=== PATIENT | male | born 1955 | race Caucasian/White ===

== ENCOUNTER 2016-09-13 11:56 | Inpatient (IN) | payer OTHER ==
--- NOTE | 2016-09-13 12:17 | CPEKG ---
Heart Rate: 125 RR Interval: 480 P-R Interval: 164 QRSD Interval: 100 QT Interval: 296 QTC Interval: 427 P Lincoln: 34 QRS Lincoln: 111 T Wave Lincoln: -4 EKG Severity - ABNORMAL ECG - EKG Impression: SINUS TACHYCARDIA EKG Impression: RIGHT VENTRICULAR HYPERTROPHY EKG Impression: BORDERLINE T ABNORMALITIES, INFERIOR LEADS Electronically Signed By: Glen Downs 13-Sep-2016 16:08:41
[2016-09-13 12:34] LABS: % IMMATURE GRANULYOCYTES 0.4 % (0.0-1.1); ABSOLUTE IMMATURE GRANULOCYTES 0.04 10^3/uL (0.00-0.10); ADD DIFF? NO; ADD MORPH? NO; ADD SCAN? NO; ATYPICAL LYMPHOCYTE FLAG 0 (0-99); FRAGMENT RBC FLAG 0 (0-99); HEMATOCRIT 35.8 % (40.0-51.0); HEMOGLOBIN 11.8 g/dL (13.7-17.5); LEFT SHIFT FLG 70 (0-99); LIPEMIA HEMOLYSIS FLAG 80 (0-99); MEAN CELL HEMOGLOBIN 29.9 pg (27.9-34.1); MEAN CELL VOLUME 90.9 fL (81.5-99.8); PLATELET CLUMPS FLAG 30 (0-99); PLATELET COUNT 166 10^3/uL (150-400); RED BLOOD CELL COUNT 3.94 10^6/uL (4.40-6.38); RED CELL DISTRIBUTION WIDTH 13.3 % (11.5-15.2)
--- NOTE | 2016-09-13 12:37 | EDPHY ---
H & P Time Seen by Provider: 09/13/16 12:24 HPI/ROS: Chief complaint. Heart transplant, fever HPI. Patient is a 61-year-old male with a heart transplant 9 years ago. 4 days ago apparently the patient had decreased RBC count and his Prograf level was low. 3 days ago he developed fever and lethargy which is continued. Fever this morning to 104 degrees. Sinus surgery May 2016. Patient denies upper respiratory symptoms, sore throat, cough. Slight shortness of breath. He notes increased heart rate. Denies abdominal pain, rash, urinary symptoms. ROS Constitutional. Fever and chills as well as weakness Eyes. no problems with vision ENT. no sore throat, no nasal drainage Cardiovascular. No chest discomfort but awareness of rapid heart rate Respiratory. Some shortness of breath Abdominal. no abdominal pain, no nausea/vomiting, no diarrhea . no problems urinating MS. no calf pain/swelling, no neck/back pain, no joint pain Skin. no rash Lymph. no swollen glands Neuro. no headache, no dizziness, no difficulty walking or with speech Past Medical/Surgical History: Heart transplant on chronic immunosuppression, hypertension, gout, dyslipidemia Social History: Single, nonsmoker, no alcohol Smoking Status: Never smoked Physical Exam: General Appearance: Alert well-developed male moderate distress vital signs show temp 37.4degrees, heart rate 149 Eyes: Pupils equal and round no pallor or injection. ENT, mucous membranes are moist. Pharynx without injection Respiratory: No retractions. Lungs are essentially clear. Maybe slight decreased breath sounds on the left Cardiovascular: Regular rate and rhythm with tachycardia Gastrointestinal: Abdomen is soft and nontender, no masses, bowel sounds normal. Neurological: Awake and alert, sensory and motor exams grossly normal. Skin: Warm and dry, no rashes. Musculoskeletal: Neck is supple nontender. Extremities symmetrical, full range of motion. Psychiatric: Patient is oriented X 3, there is no agitation. Constitutional: Initial Vital Signs Temperature (C) 37.4 C 09/13/16 12:02 Heart Rate 149 H 09/13/16 12:02 Respiratory Rate 22 H 09/13/16 12:02 Blood Pressure 142/100 H 09/13/16 12:02 O2 Sat (%) 96 09/13/16 12:02 O2 Delivery Mode Room Air Allergies/Adverse Reactions: spironolactone Allergy (Severe, Verified 09/13/16 14:04) Other-Enter Comments Home Medications: Medication Instructions Recorded Allopurinol 100 MG (*) 100 mg PO DAILY 09/13/16 Aspirin [Aspirin 81mg (*)] 81 mg PO DAILY 09/13/16 Azelastine [Astelin Nasal [place] 1 sprays EACHNARE BID PRN 09/13/16 (RX)] Calcium [HI-BRENNAN] 1,000 mg PO BID 09/13/16 Cholecalciferol Vit D3 [Vitamin D3 2,000 units PO DAILY 09/13/16 (*)] Cyanocobalamin [Vitamin B12 (*)] 200 mcg PO DAILY 09/13/16 Lisinopril [Zestril 20 mg (*)] 20 mg PO DAILY 09/13/16 Mycophenolate Sodium [Mycophenolic 180 mg PO BID 09/13/16 Acid] Pravastatin Sodium 40 mg PO HS 09/13/16 Tacrolimus Anhydrous [Prograf 0.5 0.5 mg PO BID 09/13/16 MG (*)] Tadalafil [Cialis] 5 mg PO PRN PRN 09/13/16 traZODone [traZODONE 100MG (*)] 100 mg PO HS 09/13/16 Medical Decision Making - Diagnostics EKG Interpretation: EKG interpreted by me shows sinus tachycardia normal interval and axis. QRS is normal there is no significant ST elevation or depression. No arrhythmia. The rate is 125 Imaging Results: Imaging Impressions Chest X-Ray 09/13/16 12:26 Impression: 1. Postoperative changes related open heart surgery with heart transplant. 2. No active cardiopulmonary disease seen. One-view chest x-ray interpreted by me is nonacute Procedures: IV normal saline, monitor. 1 L saline given sepsis workup including lactate and blood cultures ED Course/Re-evaluation: Echocardiogram is ordered and performed in the emergency department which looks fairly normal other than rate On serial evaluations patient remains stable. He and I discussed laboratory evaluation, treatment plan including admission. He expresses understanding and agreement I have consulted and discussed with Dr. Mota, cardiology who sees the patient in the emergency department I consulted and discussed the case with Dr. Ivory, hospitalist, who also sees the patient in the emergency department Differential Diagnosis: I suspect that this is a a rejection syndrome as the patient is on chronic immunosuppression and is Prograf level was low 4 days ago. At this point I do not find any evidence for pneumonia or urinary tract infection. The patient does not have sepsis as he has normal lactate and normal blood pressure and again no source of infection at this point - Data Points Laboratory Results: Laboratory Results 09/13/16 12:15 09/13/16 12:15 09/13/16 09/13/16 09/13/16 12:15 12:15 12:15 WBC 10.18 10^3/uL H 10^3/uL (3.80-9.50) RBC 3.94 10^6/uL L 10^6/uL (4.40-6.38) Hgb 11.8 g/dL L g/dL (13.7-17.5) Hct 35.8 % L % (40.0-51.0) MCV 90.9 fL fL (81.5-99.8) MCH 29.9 pg pg (27.9-34.1) MCHC 33.0 g/dL g/dL (32.4-36.7) RDW 13.3 % % (11.5-15.2) Plt Count 166 10^3/uL 10^3/uL (150-400) MPV 10.0 fL fL (8.7-11.7) Neut % (Auto) 93.2 % H % (39.3-74.2) Lymph % (Auto) 2.0 % L % (15.0-45.0) [place] % (Auto) 4.2 % L % (4.5-13.0) Eos % (Auto) 0.1 % L % (0.6-7.6) Baso % (Auto) 0.1 % L % (0.3-1.7) Nucleat RBC Rel Count 0.0 % % (0.0-0.2) Absolute Neuts (auto) 9.49 10^3/uL H 10^3/uL (1.70-6.50) Absolute Lymphs (auto) 0.20 10^3/uL L 10^3/uL (1.00-3.00) Absolute Monos (auto) 0.43 10^3/uL 10^3/uL (0.30-0.80) Absolute Eos (auto) 0.01 10^3/uL L 10^3/uL (0.03-0.40) Absolute Basos (auto) 0.01 10^3/uL L 10^3/uL (0.02-0.10) Absolute Nucleated RBC 0.00 10^3/uL 10^3/uL (0-0.01) Immature Gran % 0.4 % % (0.0-1.1) Immature Gran # 0.04 10^3/uL 10^3/uL (0.00-0.10) PT 14.8 SEC SEC (12.0-15.0) INR 1.16 (0.83-1.16) APTT 28.6 SEC SEC (23.0-38.0) VBG Lactic Acid Sodium 138 mEq/L mEq/L (134-144) Potassium 4.0 mEq/L mEq/L (3.5-5.2) Chloride 102 mEq/L mEq/L (97-110) Carbon Dioxide 21 mEq/l L mEq/l (22-31) Anion Gap 15 mEq/L mEq/L (8-16) BUN 24 mg/dL H mg/dL (7-23) Creatinine 1.4 mg/dL H mg/dL (0.7-1.3) Estimated GFR 52 Glucose 111 mg/dL H mg/dL (70-100) Calcium 9.4 mg/dL mg/dL (8.5-10.4) Total Bilirubin 0.7 mg/dL mg/dL (0.1-1.4) Troponin I < 0.012 ng/mL ng/mL (0-0.034) NT-Pro-B Natriuret Pep 967 pg/mL H pg/mL (0-125) 09/13/16 12:15 WBC RBC Hgb Hct MCV MCH MCHC RDW Plt Count MPV Neut % (Auto) Lymph % (Auto) [place] % (Auto) Eos % (Auto) Baso % (Auto) Nucleat RBC Rel Count Absolute Neuts (auto) Absolute Lymphs (auto) Absolute Monos (auto) Absolute Eos (auto) Absolute Basos (auto) Absolute Nucleated RBC Immature Gran % Immature Gran # PT INR APTT VBG Lactic Acid 1.9 mmol/L mmol/L (0.7-2.1) Sodium Potassium Chloride Carbon Dioxide Anion Gap BUN Creatinine Estimated GFR Glucose Calcium Total Bilirubin Troponin I NT-Pro-B Natriuret Pep Medications Given: Discontinued Medications Sodium Chloride (Ns) 1,000 mls @ 0 mls/hr IV EDNOW ONE; Wide Open PRN Reason: Protocol Stop: 09/13/16 12:53 Last Admin: 09/13/16 13:03 Dose: 1,000 mls Departure - Departure Disposition: [facility] Inpatient Acute Clinical Impression: Heart transplant complication Fever Qualifiers: Fever type: unspecified Qualified Code(s): R50.9 - Fever, unspecified Condition: Fair
[2016-09-13 12:45] LABS: ANION GAP 15 mEq/L (8-16); APTT 28.6 SEC (23.0-38.0); BILIRUBIN,TOTAL 0.7 mg/dL (0.1-1.4); CALCIUM 9.4 mg/dL (8.5-10.4); CARBON DIOXIDE 21 mEq/l (22-31); CHLORIDE 102 mEq/L (97-110); CREATININE 1.4 mg/dL (0.7-1.3); GLOMERULAR FILTRATION RATE 52; GLUCOSE 111 mg/dL (70-100); INR 1.16 (0.83-1.16); PROTIME(PATIENT) 14.8 SEC (12.0-15.0); SODIUM 138 mEq/L (134-144)
[2016-09-13] MEDS ORDERED: NS 1,000 ML IV ONE (12:52)
[2016-09-13 12:56] LABS: TROPONIN I < 0.012 ng/mL (0-0.034)
[2016-09-13] MEDS ORDERED: ACETAMINOPHEN 325 MG TAB PO PRN (14:37)
[2016-09-13] MEDS ORDERED: ONDANSETRON DISINTEGRATING 4 MG TAB PO PRN (14:37)
[2016-09-13] MEDS ORDERED: ONDANSETRON 4 MG/2 ML VIAL IVP PRN (14:37)
[2016-09-13] MEDS ORDERED: AZELASTINE NASAL MDI EACHNARE PRN (14:40)
[2016-09-13] MEDS ORDERED: NS 1,000 ML IV SCH (14:45)
--- NOTE | 2016-09-13 14:50 | PDGENHP ---
History and Physical - Chief Complaint Acute fever - History of Present Illness primary care provider: Dr. Dakota Khan primary quality assurance inspector: Dr. Americo Bravo/Seamus Mota primary transplant provider: Dr. Fern Medrano History of present illness: 61-year-old male presents with acute fever characterized as a temperature of 104 degrees F with onset of symptoms day prior to this presentation and duration intermittent thereafter. Patient reports associated fatigue with onset of symptoms approximately 3 days ago and progressive worsening thereafter. He denies any cough, shortness of breath, chest pain, dysuria, diarrhea, neck stiffness. He does endorse a headache which developed overnight, located globally around his head, as well as a noticeable fast heart rate. Prior to his onset of symptoms, the patient had otherwise been feeling well. The patient has been taking all of his anti-rejection medications without any recent changes. He himself has not had any recent travel but he did have healthy visitors from [place] staying in his home for approximately 1 week, departing several days prior to this presentation. He does also note that he had septal deviation surgery in May 2016, and has experienced some intermittent drainage and sinus congestion since that time. History Information - Allergies/Home Medication List Allergies/Adverse Reactions: spironolactone Allergy (Severe, Verified 09/13/16 14:04) Other-Enter Comments Home Medications: Allopurinol 100 MG (*) 100 mg PO DAILY 09/13/16 [Last Taken 09/13/16] Aspirin [Aspirin 81mg (*)] 81 mg PO DAILY 09/13/16 [Last Taken 09/13/16] Azelastine [Astelin Nasal [place] (RX)] 1 sprays EACHNARE BID PRN 09/13/16 [Last Taken Unknown] Calcium [HI-BRENNAN] 1,000 mg PO BID 09/13/16 [Last Taken 09/13/16] Cholecalciferol Vit D3 [Vitamin D3 (*)] 2,000 units PO DAILY 09/13/16 [Last Taken 09/13/16] Cyanocobalamin [Vitamin B12 (*)] 200 mcg PO DAILY 09/13/16 [Last Taken 09/13/16] Lisinopril [Zestril 20 mg (*)] 20 mg PO DAILY 09/13/16 [Last Taken 09/12/16] Mycophenolate Sodium [Mycophenolic Acid] 180 mg PO BID 09/13/16 [Last Taken ] Pravastatin Sodium 40 mg PO HS 09/13/16 [Last Taken 09/12/16] Tacrolimus Anhydrous [Prograf 0.5 MG (*)] 0.5 mg PO BID 09/13/16 [Last Taken ] Tadalafil [Cialis] 5 mg PO PRN PRN 09/13/16 [Last Taken 09/06/16] traZODone [traZODONE 100MG (*)] 100 mg PO HS 09/13/16 [Last Taken 09/12/16] I have personally reviewed and updated: family history, medical history, social history, surgical history - Past Medical History Additional medical history: Nonischemic cardiomyopathy with a heart transplant in 2007, 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 Reported deep venous thrombosis in the setting of transplant surgery. 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 chronic kidney disease stage 3 with baseline creatinine 1.3. No evidence of coronary artery disease with normal angiography November of 2014. chronic hypertension. chronic foot pain. hyperlipidemia. osteopenia. actinic keratosis. deviated septum - Surgical History Additional surgical history: deviated septum May 2016. heart transplant 2007. fasciotomy 2007 - Family History Additional family history: no family history of renal failure, heart failure, no recent sick family contacts - Social History Smoking Status: Never smoked Alcohol Use: Rarely Drug Use: None Additional social history: normally independent in his ADLs comma physically active, does not experience any anginal symptoms Review of Systems ROS: 10pt was reviewed & negative except for what was stated in HPI & below Constitutional: Reports: fever, malaise, weakness Cardiac: Reports: other ( tachycardia) Physical Exam Temp Pulse Resp BP Pulse Ox 37.7 C 118 H 20 123/76 H 98 09/13/16 13:02 09/13/16 14:21 09/13/16 14:21 09/13/16 14:21 09/13/16 14:21 Constitutional: no apparent distress, appears nourished, not in pain Eyes: PERRL, anicteric sclera, EOMI Ears, Nose, Mouth, Throat: moist mucous membranes, hearing normal, no oral mucosal ulcers, other ( some mucus in the bilateral nares without any significant erythema or ulceration) Cardiovascular: tachycardia, No systolic murmur, No irregularly irregular, No edema Respiratory: reduced air movement ( left lower and mid posterior segments), inspiratory crackles ( left base), No expiratory wheeze, No bronchial breath sounds, No respiratory distress Gastrointestinal: normoactive bowel sounds, soft, non-tender abdomen, other ( nontender central abdominal hernia), No guarding Skin: other ( well-healed scars on the chest, no evidence of vesicular lesions) Musculoskeletal: full muscle strength, no muscle tenderness, other ( full range of motion of the neck without any meningeal signs) Neurologic: AAOx3, sensation intact bilaterally, No weakness Psychiatric: interacting appropriately, not anxious, not encephalopathic, thought process linear Lymph, Heme, Immunologic: other ( palpable 1 cm bilateral submandibular lymph nodes, mildly tender on the right side, no further anterior posterior cervical lymphadenopathy) Lab Data & Imaging Review 09/13/16 12:15 09/13/16 12:15 WBC 10.18 10^3/uL (3.80-9.50) H 09/13/16 12:15 RBC 3.94 10^6/uL (4.40-6.38) L 09/13/16 12:15 Hgb 11.8 g/dL (13.7-17.5) L 09/13/16 12:15 Hct 35.8 % (40.0-51.0) L 09/13/16 12:15 MCV 90.9 fL (81.5-99.8) 09/13/16 12:15 MCH 29.9 pg (27.9-34.1) 09/13/16 12:15 MCHC 33.0 g/dL (32.4-36.7) 09/13/16 12:15 RDW 13.3 % (11.5-15.2) 09/13/16 12:15 Plt Count 166 10^3/uL (150-400) 09/13/16 12:15 MPV 10.0 fL (8.7-11.7) 09/13/16 12:15 Neut % (Auto) 93.2 % (39.3-74.2) H 09/13/16 12:15 Lymph % (Auto) 2.0 % (15.0-45.0) L 09/13/16 12:15 [place] % (Auto) 4.2 % (4.5-13.0) L 09/13/16 12:15 Eos % (Auto) 0.1 % (0.6-7.6) L 09/13/16 12:15 Baso % (Auto) 0.1 % (0.3-1.7) L 09/13/16 12:15 Nucleat RBC Rel Count 0.0 % (0.0-0.2) 09/13/16 12:15 Absolute Neuts (auto) 9.49 10^3/uL (1.70-6.50) H 09/13/16 12:15 Absolute Lymphs (auto) 0.20 10^3/uL (1.00-3.00) L 09/13/16 12:15 Absolute Monos (auto) 0.43 10^3/uL (0.30-0.80) 09/13/16 12:15 Absolute Eos (auto) 0.01 10^3/uL (0.03-0.40) L 09/13/16 12:15 Absolute Basos (auto) 0.01 10^3/uL (0.02-0.10) L 09/13/16 12:15 Absolute Nucleated RBC 0.00 10^3/uL (0-0.01) 09/13/16 12:15 Immature Gran % 0.4 % (0.0-1.1) 09/13/16 12:15 Immature Gran # 0.04 10^3/uL (0.00-0.10) 09/13/16 12:15 PT 14.8 SEC (12.0-15.0) 09/13/16 12:15 INR 1.16 (0.83-1.16) 09/13/16 12:15 APTT 28.6 SEC (23.0-38.0) 09/13/16 12:15 VBG Lactic Acid 1.9 mmol/L (0.7-2.1) 09/13/16 12:15 Sodium 138 mEq/L (134-144) 09/13/16 12:15 Potassium 4.0 mEq/L (3.5-5.2) 09/13/16 12:15 Chloride 102 mEq/L (97-110) 09/13/16 12:15 Carbon Dioxide 21 mEq/l (22-31) L 09/13/16 12:15 Anion Gap 15 mEq/L (8-16) 09/13/16 12:15 BUN 24 mg/dL (7-23) H 09/13/16 12:15 Creatinine 1.4 mg/dL (0.7-1.3) H 09/13/16 12:15 Estimated GFR 52 09/13/16 12:15 Glucose 111 mg/dL (70-100) H 09/13/16 12:15 Calcium 9.4 mg/dL (8.5-10.4) 09/13/16 12:15 Total Bilirubin 0.7 mg/dL (0.1-1.4) 09/13/16 12:15 Troponin I < 0.012 ng/mL (0-0.034) 09/13/16 12:15 NT-Pro-B Natriuret Pep 967 pg/mL (0-125) H 09/13/16 12:15 Visualized and Interpreted Chest x-ray results: Yes Chest X-Ray results: no infiltrate Visualized and Interpreted EKG results: Yes EKG Interpretation: Positive for: other ( sinus tachycardia with T-wave inversion in lead 3) Assessment & Plan Assessment: 61-year-old male presents with systemic inflammatory response syndrome in the setting of chronic immunosuppression for heart transplant Plan: 1. Systemic inflammatory response syndrome. Acute, new problem this provider, further workup indicated. Evidenced by tachycardia, fever, unclear source of infection. Patient is high risk for both focal and systemic infections, as well as atypical organisms, given his chronic immunosuppressed state. -it should be noted that his resting heart rate is 100 to 110 secondary to vagal nerve ligation for heart transplant, presented with a heart rate around 140, has reduced to 120 with IV fluids -discussed with Dr. Seamus Mota, he recommends ongoing use of IV fluids and we will provide 100 cc/hour normal saline -evaluate for source of infection with blood cultures, respiratory viral panel, urinalysis, chest CT to further workup poor air movement on the left -send procalcitonin level to gauge whether this could be bacterial versus viral -discussed with Dr. Glen Diggs, appreciate Infectious Disease consultation -hold on antibiotics until seen by Dr. Diggs -although rejection was considered, Dr. Mota has fully evaluated the patient and he does not believe that the present condition is consistent with rejection 2. Acute kidney injury on chronic kidney disease. Secondary to hypovolemia in the setting of infection, creatinine is elevated from his baseline, which is 1.3 , will provide IV fluids, reassess creatinine level and monitor urine output 3. Chronic immunosuppression secondary to heart transplant and anti rejection medications. reviewed outside records including 08/28/2015 clinic appointment assessment and plan by Dr. Medrano, outlines patient's cardiac hx as well as post-transplant care -Echo w/ preserved EF, 50%, no pericardial effusion -Continue patient's anti-rejection medications -level sent by Dr. Mota 4. HTN. Holding ACEi Diet. Cardiac Prophylaxis. High risk patient given past DVT, heparin subcu Code. Full per patient, is MPOA Disposition. Anticipated discharge uncertain this time, anticipated length stay is greater than 48 hours warranting inpatient admission status for reasonable medical necessity including suspected infection with systemic inflammatory response syndrome in the setting of chronic immunosuppression and previous heart transplant.
[2016-09-13 14:57] LABS: BILIRUBIN,TOTAL 0.7 mg/dL (0.1-1.4); BILIRUBIN-CONJUGATED 0.4 mg/dL (0.0-0.5); BILIRUBIN-UNCONJUGATED 0.3 mg/dL (0.0-1.1); TOTAL PROTEIN 6.2 g/dL (6.3-8.2)
[2016-09-13 15:00] LABS: COLOR YELLOW; LEUKOCYTE ESTERASE,URINE NEGATIVE (NEGATIVE); NITRITE,URINE NEGATIVE (NEGATIVE)
--- NOTE | 2016-09-13 15:03 | SOAPPROG ---
SOAP Progress Note Assessment/Plan: Assessment: Cardiology consultation performed and dictated. 61 y/o man initially with CHF EF 5% then got VAD then successful OHT at [facility] in 11/23. He was CMV (+) and donor CMV (+). Initially in first year after heart transplant some problems with acute grade 3b cellular and concurrent vascular rejection. Those subsided and has had any heart issues in last seven years. Last cardiac cath 11/30 showed normal coronaries with RHC: RA 1, PA 25/8 and CI 2.4 l/min. Last RV bx > three years ago and fine. He was in his normal state of good health able to do ett for 40 minutes until three days ago malaise, fevers to 104.0 and weak. Denies cough, purulent sputum production or CP. Has mild shortness of breath. Echo at bedside in er shows LVEF 58% with mild MR and no pericardial effusion. IMP: 1)normal OHT from 2007 with no signs of acute rejection or angina or CHF. 2)Fevers..question viral syndrome but could have LLL pneumonia. REC: 1)admit to tele 2)IVF NS x 1-2 liters 3)continue current home meds without changes. No need for stress dose steroids as has been off Prednisone for many years. 4)blood cultures and viral swabs. ID consult 5)check Prograf level. Goal trough level 4-5 per [facility] clinic notes. Thanks. Will follow with you. Very nice man. 09/13/16 14:57 Objective: Vital Signs Temp Pulse Resp BP Pulse Ox 37.7 C 118 H 20 123/76 H 98 09/13/16 13:02 09/13/16 14:21 09/13/16 14:21 09/13/16 14:21 09/13/16 14:21 PT 14.8 SEC (12.0-15.0) 09/13/16 12:15 INR 1.16 (0.83-1.16) 09/13/16 12:15 ICD10 Worksheet Patient Problems: Problems Problem Status Onset Fever Acute Heart transplant recipient Acute Heart transplant recipient Acute - ICD10 Problem Qualifiers (1) Fever Qualifiers: Fever type: F Encounter type: E (2) Heart transplant recipient (3) Heart transplant recipient
[2016-09-13 15:19] LABS: PROCALCITONIN 0.86 ng/mL (0.02-0.10)
--- NOTE | 2016-09-13 15:31 | ECHO ---
[id number] + + [address] : : [place] [address] : : [phone] + Adult Echocardiographic Report + --------+ :Name: WILFRID TITUS DStudy Date: 09/13/2016 02:24 PM : : Hospital Admission Number: [id number] Locati on: ER13: :: 1955 Gender: Male Height: 69 in : :Age: 61 yrs Race: WH Weight: 134 lb : :Reason For Study: Eval LV Fx : : BSA: 1.7 meter s2 : :History: Heart Transplant 2007, Now fever, SOB, Tachycardia : + --------+ MMode/2D Measurements \T\ Calculations IVSd: 0.80 cm LVIDd: 4.3 cm FS: 33.9 % Ao root diam: 3.3 cm LVPWd: 0.87 cm LVIDs: 2.9 cm EDV(Teich): 84.4 ml ACS: 2.6 cm ESV(Teich): 31.1 ml EF(Teich): 63.1 % Normal Measurement Values: + + :LVIDd (3.5-5.7cm) IVSd (0.6-1.1cm) LVPWd (0.6-1.1cm) Aortic Root (2.0-3.7cm)Left Atrium (1.5-4.0cm): :LV Vol(d) (76-115ml) LV Vol(s) (29-48ml) Ejec Fraction (50-65%)PV Robert (0.6- 1.2m/s) TV Robert (0.4-1.0m/s) : :MV E Robert (0.8-1.0m/s)MV A Robert (0.3-1.0m/s)LVOT Robert (0.7-1.2m/s) Asc Ao Robert ( 0.9-1.8m/s) : + + Doppler Measurements \T\ Calculations MV E max robert: 126.0 cm/sec PA V2 max: 105.0 cm/sec TR max robert: 248.0 cm/sec PA max P.4 mmHg TR max P.6 mmHg RAP systole: 5.0 mmHg RVSP(TR): 29.6 mmHg Left Ventricle The left ventricle is normal in size. There is normal left ventricular wall thickness. The left ventricular ejection fraction is normal. LVEF= 65%. The left ventricular wall motion is normal. Right Ventricle The right ventricle is normal in size and function. Atria LA enlarged consisent with s/p OHT. No ASD or PFO noted. Small suture line noted. TAMANNA c/w OHT. Mitral Valve The mitral valve is normal in structure and function. There is no evidence of mitral valve prolapse. There is no mitral valve stenosis. Trivial MR noted. Tricuspid Valve Normal tricuspid valve. There is trace tricuspid regurgitation. Aortic Valve The aortic valve is normal in structure and function. There is no aortic stenosis. There is no aortic insufficiency. Pulmonic Valve The pulmonic valve is normal in structure and function. Trivial PI noted. Great Vessels The aortic root is normal size. Pericardium/Pleural There is no pericardial effusion. Conclusion A complete two-dimensional transthoracic echocardiogram was performed (2D, M-mode, Doppler and color flow Doppler). 1)Sinus tachycardia at 122bpm. 2)Normal LV size and systolic function with LVEF 65% and normal wall motions. 3)Bi-atrial enlargement c/w orthotopic heart transplantation. 4)Trivial MR without MV prolapse. 5)Trivial TR with estimated normal PA pressures. 6)No pericardial effusion or valvular vegetations noted. Final Reading Physician: Seamus Mota electronically signed on 09/13/2016 03:30 PM Ordering Physician: JURGEN BACH Performed By: Nando Perez, DANOCS
--- NOTE | 2016-09-13 15:39 | GCON ---
[f rep st] CONSULTATION CARDIOLOGY CONSULTATION DATE OF CONSULTATION: 09/13/2016 REFERRING PHYSICIAN: Roberto Ivory MD REASON FOR CONSULTATION: Evaluate heart transplant patient with fevers and shortness of breath, and help manage transplant immunosuppression. HISTORY OF PRESENT ILLNESS: The patient is a 61-year-old gentleman with the following cardiac histo ry. In 2007, he presented in cardiogenic shock with an ejection fraction of 5%. He was transferred to the [facility] where he received an LVAD for stabilization and eventually got an orthot opic heart transplant in November of 2007. 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 The first 6 months of transplant were slightly dario with a grade 3B cellular rejection and concurr ent vascular rejection. He also had some CMV infection and a persistent left pleural effusion. How ever since the first 6 months, he has done quite well from the heart transplant. His last coronary angiogram in November of 2014 demonstrated normal coronary arteries. Right heart catheterization dem onstrated an RA pressure of 1, PA pressure of 25/88, and a mean pulmonary capillary wedge pressure o f 10 with a cardiac index of 2.4 L/min. An echo at bedside today demonstrates an LVEF of 58% with m ild mitral regurgitation and no pericardial effusion. His last biopsy was over 3 years ago and norm al, he reports. He normally can exercise on his home treadmill for 40 minutes without difficulty. He is to a [place] woman and they did have visitors from [place] earlier this week. Starting 3 days ago, he started having fevers, malaise and chills. He had a temperature of 104 toda y. He has mild shortness of breath walking around the house. He reports no cough, purulent sputum production, chest pain, or syncope. He has no diarrhea. His last colonoscopy 2 years ago was gabby l with no masses or CMV infection. PAST MEDICAL HISTORY: Status post orthotopic heart transplant as per HPI. Chronic renal insufficie ncy with creatinine 1.3, hypertension and previous CMV infection in 2007. PAST SURGICAL HISTORY: Orthotopic heart transplant in November of 2007 and appendectomy. MEDICATIONS: At home: Prograf 0.5 mg per day. CellCept 750 mg twice daily. Aspirin 81 mg per day . Pravastatin 40 mg per day. Lisinopril 5 mg per day. Of note, patient is no longer on prednisone . ALLERGIES: Aldactone. SOCIAL HISTORY: The patient is . He denies tobacco or excessive alcohol intake. FAMILY HISTORY: Negative for premature coronary artery disease. REVIEW OF SYSTEMS: The patient reports no GI bleed symptoms such as hematemesis, melena, or bright red blood per rectum. He has no TIA or CVA symptoms. The rest of 10-point review of systems is neg ative. PHYSICAL EXAMINATION: VITAL SIGNS: Temperature 37.7, pulse 122 and regular, blood pressure 143/91, respirations 24, weight 60.8 kg. GENERAL: A warm but not toxic-appearing gentleman in no acute dis tress without chest pain or using accessory respiratory muscles. EYES: Pupils are equal, and react christian to light. ENT: Oral mucosa with no cyanosis. NECK: Jugular venous pressure to 6 cm. Carotid pulses 2+ bilaterally with no obvious bruits. No nuchal rigidity noted. LUNGS: Crackles at the l eft base noted, otherwise clear to auscultation. HEART: Tachycardic, regular rhythm with no obviou s murmurs or S3. ABDOMEN: Soft, nontender. No guarding or rebound. No ascites. EXTREMITIES: 2+ peripheral pulses including femoral and pedal pulses. No edema noted. No rashes noted. MUSCULOSK ELETAL: No scoliosis. NEUROLOGICAL: Normal affect and mood. SKIN: No bleeding or cyanosis. LABORATORY DATA: EKG: Sinus tachycardia with no acute ST elevation or depression. White count 10.2, hematocrit 36, platelets 166,000, MCV 91. Sodium 138, potassium 4.0, chloride 102 , bicarb 21, BUN 24, creatinine 1.4, glucose 111. A-[id number] level 967. INR 1.16. IMPRESSION: This is a 61-year-old gentleman status post successful orthotopic heart transplant in [facility] 2007 with fevers and chills for the last 3 days. Clinically I wonder if he is having a vi ral syndrome or a left lower lobe pneumonia. I do not think he is having heart allograft rejection or unstable angina. He appears slightly dehydrated probably causing his mild tachycardia. RECOMMENDATIONS: 1. I would admit to telemetry and give IV fluids 1-2 L normal saline over the next day. 2. No change in current home medications. 3. I do not think he needs stress dose steroids as he has not been on prednisone for a long time. 4. We will check a Prograf level and adjust his Prograf for a goal trough level of 4-6 as per his t ransplant clinic recommendations. 5. I agree with doing blood cultures and nares cultures, and consider ID consult. /[id number]/MODL
--- NOTE | 2016-09-13 20:38 | GCON ---
[f rep st] CONSULTATION DATE OF CONSULTATION: 09/13/2016 REFERRING PHYSICIAN: Roberto Ivory MD REASON FOR CONSULTATION: Fever in patient with history of heart transplant. HISTORY OF PRESENT ILLNESS: Patient is a 61-year-old, male with a past medical history of orthotopi c heart transplantation in 2007 whom I am asked to see in consultation for fever. The patient descr ibes developing sense of fatigue and weakness on Thursday where he felt like he was around 92% to 9 3% of his usual self. This became progressively worse and he subsequently developed a fever to 104 degrees with chills. He does have moderate associated headache with these symptoms. He denies myal gias, arthralgias, nausea, vomiting, or diarrhea. He has not had urinary tract symptoms. He denies skin rash. He has not had sore throat. He does have some chronic nasal congestion, after undergoi ng nasal septoplasty in May. He has not noted significant cough although he has mild shortness of breath. The patient traveled to [place] in July and in May, no unusual events while traveling. He also had visitors from [place] staying at his house recently but no one had acute illness. No animal or enviro nmental exposures. The patient did have CMV shortly after his transplant and this was manifest prim arily by fever and diarrhea (patient was CMV positive with CMV positive donor). The patient does no t note any recent mosquito bites. The patient has had a maximal temperature of 37.7 at [facility] and has a mild leukocytosis with a white count of 10.2 with neutrophil predominance. P rocalcitonin is modestly elevated at 0.86. The patient has not been taking recent antibiotics and has not been given antibiotics since his hosp ital admission. Given the above findings, I am now asked to assist in his ongoing management. PAST MEDICAL HISTORY: 1. Orthotopic heart transplant in 2007; patient had clotting related to balloon pump on the left lo wer extremity and required fasciotomy prior to transplantation. 2. Chronic renal insufficiency. 3. History of CMV disease. 4. Hypertension. PAST SURGICAL HISTORY: 1. Heart transplantation. 2. Nasal septoplasty. 3. Fasciotomy as above. CURRENT MEDICATIONS: 1. Aspirin 81 mg p.o. daily. 2. Astelin 1 spray each naris twice daily. 3. Calcium 1000 mg p.o. twice daily. 4. Vitamin D 2000 units p.o. daily. 5. Heparin 5000 units subcu q.8 hours. 6. Mycophenolate 180 mg p.o. twice daily. 7. Pravachol 40 mg p.o. at bedtime. 8. Prograf 0.5 mg p.o. twice daily. 9. Trazodone 100 mg p.o. at bedtime. 10. Vitamin B12 200 mcg p.o. daily. ALLERGIES: Spironolactone (it sounds more like he had excessive diuresis rather than true allergic reaction.) SOCIAL HISTORY: Patient does not smoke. He drinks alcohol rarely. No drug use. Travel as outline d above. No travel in [place]. No contact with animal carcasses. No pets at home. Works as an a ccountant. No unusual other exposures. The patient does travel annually to [place] for [employer]. FAMILY HISTORY: Noncontributory. REVIEW OF SYSTEMS: Outside that noted in the HPI, remainder of a 10 system review is unremarkable. PHYSICAL EXAMINATION: VITAL SIGNS: Temperature maximum 37.7, temperature current 37.5, heart rate 125, respiratory rate 20, blood pressure 128/77, oxygen saturation 94% on room air. GENERAL: The p atient is well nourished, well developed, in no acute distress. He appears nontoxic. HEENT: There is no scleral icterus, conjunctival injection, or conjunctival petechiae. Oropharynx is clear with out lesions. Dentition is in fair repair. There is no nasal discharge. There is no tenderness ove r the frontal, maxillary or mastoid area. NECK: Supple without lymphadenopathy or palpable thyrome feliberto. CHEST: There are occasional crackles in the left base; otherwise clear to auscultation with normal respiratory effort. CARDIOVASCULAR: Tachycardic without murmurs, gallops, or rubs. ABDOMEN: Soft, nontender, nondistended. There is no palpable organomegaly. Bowel sounds are present. MUS CULOSKELETAL: No cyanosis, clubbing, or edema. SKIN: No rashes present. No stigmata of endocardi tis. Skin is diffusely warm to palpation. LYMPHATICS: No cervical or supraclavicular nodes. NEUR OLOGIC: Patient is alert and interacts appropriately with the examiner. Cranial nerves 2 through 1 2 are grossly intact. Muscle tone and bulk are normal. LABORATORY DATA: White blood cell count 10.2, hematocrit 35.8, platelets 166, neutrophils 93%. Ser um creatinine is 1.4. AST 19, ALT 19, bilirubin 0.7, alkaline phosphatase 49. Albumin 4.0, procalc itonin 0.86. TSH 1.2. Urinalysis is negative. INR is 1.2. Venous lactate is 1.9. Blood cultures and respiratory panel by PCR are pending. CT scan of the chest shows no focal pneumonia. Echocardiogram shows ejection fraction of 65% with normal wall motion; no effusion or vegetations no genesis. IMPRESSION: Fever/chills in patient with prior heart transplantation: Diagnostic considerations in clude viral syndrome versus primary bacterial infection such as bacteremia associated with either St reptococcus pneumoniae or Staphylococcus aureus. He is relatively far out from his transplant [facility] opportunistic processes less likely. 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 West Nile virus is currently present in mosquito pools locally and is a consideration. I doubt this is marketing sales representative of reactivation of CMV. Influenza would also be of consideration, although less common in summer a nd no specific respiratory symptoms. RECOMMENDATIONS: 1. Ceftriaxone 1 g IV q.24 hours while blood cultures are pending. 2. Await results of respiratory PCR panel. 3. Check West Nile virus antibody. 4. Check CMV PCR in serum. 5. Await above data prior to additional diagnostic testing, if above is unrevealing. Thank you for this consultation. We will continue to follow patient with you. /[id number]/MODL
[2016-09-13] MEDS: MYCOPHENOLATE SODIUM 180 MG TAB.DR PO SCH (20:48)
[2016-09-13] MEDS: traZODone 100 MG TAB PO SCH (20:48)
[2016-09-13] MEDS: CALCIUM CARBONATE 500 MG TAB PO SCH (20:49)
[2016-09-13] MEDS: PRAVASTATIN SODIUM 40 MG TAB PO SCH (20:49)
[2016-09-13] MEDS: TACROLIMUS ANHYDROUS 0.5 MG CAP PO SCH (20:53)
[2016-09-13] MEDS: HEPARIN 5,000 UNIT/0.5 ML SYR SC SCH (20:54)
[2016-09-13] MEDS ORDERED: NON-FORMULARY NEW DRUG (Calcium [Hi-Cal] 1,000 MG) PO SCH (21:00)
[2016-09-14 05:26] LABS: % IMMATURE GRANULYOCYTES 0.4 % (0.0-1.1); ABSOLUTE IMMATURE GRANULOCYTES 0.03 10^3/uL (0.00-0.10); ADD DIFF? NO; ADD MORPH? NO; ADD SCAN? YES; ATYPICAL LYMPHOCYTE FLAG 0 (0-99); FRAGMENT RBC FLAG 0 (0-99); HEMATOCRIT 28.5 % (40.0-51.0); HEMOGLOBIN 9.4 g/dL (13.7-17.5); LIPEMIA HEMOLYSIS FLAG 80 (0-99); MEAN CELL HEMOGLOBIN 29.9 pg (27.9-34.1); MEAN CELL VOLUME 90.8 fL (81.5-99.8); MEAN PLATELET VOLUME 10.5 fL (8.7-11.7); PLATELET CLUMPS FLAG 10 (0-99); PLATELET COUNT 136 10^3/uL (150-400); RED BLOOD CELL COUNT 3.14 10^6/uL (4.40-6.38); RED CELL DISTRIBUTION WIDTH 13.6 % (11.5-15.2)
[2016-09-14 05:27] LABS: LEFT SHIFT FLG 170 (0-99)
[2016-09-14 05:30] LABS: ANION GAP 9 mEq/L (8-16); CALCIUM 8.6 mg/dL (8.5-10.4); CARBON DIOXIDE 21 mEq/l (22-31); CHLORIDE 110 mEq/L (97-110); CREATININE 1.4 mg/dL (0.7-1.3); GLOMERULAR FILTRATION RATE 52; GLUCOSE 73 mg/dL (70-100); MAGNESIUM 1.3 mg/dL (1.6-2.3); SODIUM 140 mEq/L (134-144)
[2016-09-14 05:36] LABS: TROPONIN I < 0.012 ng/mL (0-0.034)
[2016-09-14 05:45] LABS: SCAN NEGATIVE
[2016-09-14] MEDS: HEPARIN 5,000 UNIT/0.5 ML SYR SC SCH ×3 (06:04→21:46)
[2016-09-14] MEDS: CHOLECALCIFEROL VIT D3 1,000 UNITS TAB PO SCH (08:25)
[2016-09-14] MEDS: MYCOPHENOLATE SODIUM 180 MG TAB.DR PO SCH ×2 (08:25→19:58)
[2016-09-14] MEDS: CYANO/VITAMIN B12 100 MCG TAB PO SCH (08:25)
[2016-09-14] MEDS: ASPIRIN 81 MG CHEWABLE TAB PO SCH (08:25)
[2016-09-14] MEDS: CALCIUM CARBONATE 500 MG TAB PO SCH ×2 (08:25→19:59)
[2016-09-14] MEDS: TACROLIMUS ANHYDROUS 0.5 MG CAP PO SCH ×2 (09:00→19:58)
--- NOTE | 2016-09-14 09:11 | SOAPPROG ---
SOAP Progress Note Assessment/Plan: Assessment: 61 y/o man initially with CHF EF 5% then got VAD then successful OHT at [facility] in 11/23. He was CMV (+) and donor CMV (+). Initially in first year after heart transplant some problems with acute grade 3b cellular and concurrent vascular rejection. Those subsided and has had any heart issues in last seven years. Last cardiac cath 11/30 showed normal coronaries with RHC: RA 1, PA 25/8 and CI 2.4 l/min. Last RV bx > three years ago and fine. He was in his normal state of good health able to do ett for 40 minutes until three days ago malaise, fevers to 104.0 and weak. Denies cough, purulent sputum production or CP. Has mild shortness of breath. Echo at bedside in er shows LVEF 58% with mild MR and no pericardial effusion. He is feeling better with less tachycardia. Still warm. No productive cough. REC: 1)no change in cardiac meds or cardiac immunosuppression. 2)will check more accurate trough Prograf level tommorrow AM two hours before his planned AM prograf dose for goal level of 4-6. 3)await ID's thoughts on today's rounds. 09/14/16 09:08 Subjective: feels better and stronger with less racing heart. Still not at baseline. Feels warm and tired. No CP, PND or cough. Objective: Vital Signs Temp Pulse Resp BP Pulse Ox 36.9 C 97 17 134/83 H 93 09/14/16 07:41 09/14/16 07:41 09/14/16 07:41 09/14/16 07:41 09/14/16 07:41 Microbiology 09/13/16 17:45 Respiratory Panel (PCR) - Final Nasal, Sinus - Swab No Organism Detected Laboratory Results 09/14/16 03:56 09/14/16 03:56 09/13/16 09/14/16 09/15/16 05:59 05:59 05:59 Intake Total 3100 400 Output Total 300 350 Balance 2800 50 PT 14.8 SEC (12.0-15.0) 09/13/16 12:15 INR 1.16 (0.83-1.16) 09/13/16 12:15 Physical Exam - Physical Exam General Appearance: alert EENT: normal ENT inspection Neck: non-tender Respiratory: crackles (left base.) Cardiac/Chest: tachycardia, No gallop, No JVD, No systolic murmur Peripheral Pulses: 2+: carotid (R), carotid (L), femoral (R), femoral (L), dorsalis-pedis (R), dorsalis-pedis (L) Abdomen: non-tender, No distended, No guarding, No hepatomegaly Skin: warm/dry Extremities: No pedal edema Neuro/Psych: oriented x 3 ICD10 Worksheet Patient Problems: Problems Problem Status Onset Fever Acute Fever Acute Heart transplant complication Acute Heart transplant recipient Acute Heart transplant recipient Acute - ICD10 Problem Qualifiers (1) Fever Qualifiers: Fever type: F Encounter type: E (2) Heart transplant recipient (3) Heart transplant recipient
--- NOTE | 2016-09-14 11:26 | PCMIDPN ---
Assessment/Plan: Assessment/Plan: * Fever: No identified etiology for fever to date. Overall feels clinically improved. Continue ceftriaxone while blood cultures are pending. Await West Nile virus antibody and CMV PCR. Repeat CBC in a.m. to follow platelet count. * Anemia: Hematocrit decreased today which may be dilutional. Reviewed with patient he notes that last blood draw at [place] revealed anemia which was going to be further evaluated as outpatient. LFTs do not suggest hemolysis. 09/14/16 11:22 Subjective: Patient feels better today. No further chills. No other specific complaints. Objective: Vital Signs Temp Pulse Resp BP Pulse Ox 36.9 C 97 17 134/83 H 93 09/14/16 07:41 09/14/16 07:41 09/14/16 07:41 09/14/16 07:41 09/14/16 07:41 Microbiology 09/13/16 17:45 Respiratory Panel (PCR) - Final Nasal, Sinus - Swab No Organism Detected Laboratory Results 09/14/16 03:56 09/14/16 03:56 09/13/16 09/14/16 09/15/16 05:59 05:59 05:59 Intake Total 3100 400 Output Total 300 350 Balance 2800 50 Ceftriaxone # 2 Blood cultures x2 pending Respiratory pathogen panel by PCR negative WNV Ab/CMV PCR pending CT scan without evidence of pneumonia Tm 37.8 - Physical Exam General Appearance: alert, no apparent distress EENT: pharynx normal, No thrush, No conjunctival petechiae Respiratory: crackles ( inspiratory crackles left base) Cardiac/Chest: tachycardia Extremities: No inflammation Abdomen: non-tender, No distended Skin: No rash, No embolic lesions ICD10 Worksheet Patient Problems: Problems Problem Status Onset Fever Acute Fever Acute Heart transplant complication Acute Heart transplant recipient Acute Heart transplant recipient Acute
--- NOTE | 2016-09-14 14:46 | HOSPPROG ---
Hospitalist Progress Note Assessment/Plan: Assessment: 61-year-old male presents with systemic inflammatory response syndrome in the setting of chronic immunosuppression for heart transplant Plan: 1. Systemic inflammatory response syndrome. POA, evidenced by tachycardia, fever , unclear source of infection, no source localizing today but patient does feel symptomatically improved s/p CTX and IVF -d/w Dr. Diggs, he recommends continuing CTX for additional 24hrs and reassessing whether growth on BCx -stop IVF 2. Chronic kidney disease stage III. Review of records from 2016 indicates baseline Cr 1.3, has received IVF o/n and Cr remains 1.4, producing urine, likely his more current baseline 3. Chronic immunosuppression secondary to heart transplant and anti rejection medications. Echo w/ preserved EF, 50%, no pericardial effusion -continue patient's anti-rejection medications -prograf level sent by Dr. Mota 4. HTN. Holding ACEi, will restart tomorrow if SBP remains stable and HR at goal Diet. Cardiac Prophylaxis. High risk patient given past DVT, heparin subcu Code. Full per patient, is MPOA Disposition. Anticipated discharge uncertain, 09/16 pending BCx results Subjective: patient reports he does not feel feverish, has more energy Objective: Vital Signs Temp Pulse Resp BP Pulse Ox 36.9 C 93 20 115/91 H 95 09/14/16 12:58 09/14/16 12:58 09/14/16 12:58 09/14/16 12:58 09/14/16 12:58 Microbiology 09/13/16 17:45 Respiratory Panel (PCR) - Final Nasal, Sinus - Swab No Organism Detected Laboratory Results 09/14/16 03:56 09/14/16 03:56 09/13/16 09/14/16 09/15/16 05:59 05:59 05:59 Intake Total 3100 750 Output Total 300 750 Balance 2800 0 PT 14.8 SEC (12.0-15.0) 09/13/16 12:15 INR 1.16 (0.83-1.16) 09/13/16 12:15 - Physical Exam Constitutional: no apparent distress, not in pain, chronically ill appearing, No uncomfortable Cardiovascular: systolic murmur (II/ at apex), tachycardia, No irregularly irregular, No edema Respiratory: no respiratory distress, no rales or rhonchi, clear to auscultation Gastrointestinal: normoactive bowel sounds, soft, non-tender abdomen, no palpable masses Neurologic: AAOx3, No weakness (motor 5/5 bilat LE) Psychiatric: interacting appropriately, not anxious, not encephalopathic, thought process linear ICD10 Worksheet Patient Problems: Problems Problem Status Onset Fever Acute Heart transplant recipient Acute Heart transplant recipient Acute Fever Acute Heart transplant complication Acute
[2016-09-14] MEDS ORDERED: MAGNESIUM SULF 1 GM/DEXTROSE 100 ML IV ONE (15:32)
[2016-09-14] MEDS: PRAVASTATIN SODIUM 40 MG TAB PO SCH (19:58)
[2016-09-14] MEDS: traZODone 100 MG TAB PO SCH (19:58)
[2016-09-15] MEDS: HEPARIN 5,000 UNIT/0.5 ML SYR SC SCH (06:07)
[2016-09-15 06:30] LABS: % IMMATURE GRANULYOCYTES 0.2 % (0.0-1.1); ABSOLUTE IMMATURE GRANULOCYTES 0.01 10^3/uL (0.00-0.10); ADD DIFF? NO; ADD MORPH? NO; ADD SCAN? NO; ATYPICAL LYMPHOCYTE FLAG 0 (0-99); FRAGMENT RBC FLAG 0 (0-99); HEMATOCRIT 31.2 % (40.0-51.0); HEMOGLOBIN 10.3 g/dL (13.7-17.5); LEFT SHIFT FLG 30 (0-99); LIPEMIA HEMOLYSIS FLAG 80 (0-99); MEAN CELL HEMOGLOBIN 29.9 pg (27.9-34.1); MEAN CELL VOLUME 90.7 fL (81.5-99.8); MEAN PLATELET VOLUME 9.8 fL (8.7-11.7); PLATELET CLUMPS FLAG 0 (0-99); PLATELET COUNT 149 10^3/uL (150-400); RED BLOOD CELL COUNT 3.44 10^6/uL (4.40-6.38); RED CELL DISTRIBUTION WIDTH 13.7 % (11.5-15.2)
[2016-09-15 07:52] VITALS: TEMP 97.9
[2016-09-15 07:55] LABS: ANION GAP 9 mEq/L (8-16); CALCIUM 9.3 mg/dL (8.5-10.4); CARBON DIOXIDE 22 mEq/l (22-31); CHLORIDE 109 mEq/L (97-110); CREATININE 1.3 mg/dL (0.7-1.3); GLOMERULAR FILTRATION RATE 56; GLUCOSE 84 mg/dL (70-100); POTASSIUM 3.8 mEq/L (3.5-5.2); SODIUM 140 mEq/L (134-144)
--- NOTE | 2016-09-15 08:18 | SOAPPROG ---
BEBE Progress Note Assessment/Plan: Assessment: 61 y/o man initially with CHF EF 5% then got VAD then successful OHT at [facility] in 11/23. He was CMV (+) and donor CMV (+). Initially in first year after heart transplant some problems with acute grade 3b cellular and concurrent vascular rejection. Those subsided and has had any heart issues in last seven years. Last cardiac cath 11/30 showed normal coronaries with RHC: RA 1, PA 25/8 and CI 2.4 l/min. Last RV bx > three years ago and fine. He was in his normal state of good health able to do ett for 40 minutes until three days ago malaise, fevers to 104.0 and weak. Denies cough, purulent sputum production or CP. Has mild shortness of breath. Echo at bedside in er shows LVEF 58% with mild MR and no pericardial effusion. He is feeling better with less tachycardia. Still warm. No productive cough. BP trending up and renal function at baseline with IV hydration. PLAN: 1)start Lisinopril 10mg PO qam. 2)rest of meds without changes. 3)await trough Prograf level for goal 4-6. 4)okay to discharge home from cardiac standpoint when rest of medical issues okay. He will follow up Cards-Svetlana in 2-4 wks after discharge. 09/15/16 08:16 Subjective: tired, weak. Denies fevers, chills, cough, diarrhea, shortness of breath or PND or CP. Objective: Vital Signs Temp Pulse Resp BP Pulse Ox 36.6 C 85 16 149/93 H 93 09/15/16 07:51 09/15/16 07:51 09/15/16 07:51 09/15/16 07:51 09/15/16 07:51 Laboratory Results 09/15/16 06:20 09/15/16 06:20 09/14/16 09/15/16 09/16/16 05:59 05:59 05:59 Intake Total 3100 2410 Output Total 300 3350 Balance 2800 -940 PT 14.8 SEC (12.0-15.0) 09/13/16 12:15 INR 1.16 (0.83-1.16) 09/13/16 12:15 Physical Exam - Physical Exam General Appearance: alert EENT: normal ENT inspection Neck: non-tender Respiratory: crackles (left base (chronic).) Cardiac/Chest: regular rate, rhythm, No gallop, No JVD, No systolic murmur Peripheral Pulses: 2+: carotid (R), carotid (L), femoral (R), femoral (L), dorsalis-pedis (R), dorsalis-pedis (L) Abdomen: non-tender, No distended, No guarding Skin: warm/dry Extremities: No pedal edema Neuro/Psych: oriented x 3 ICD10 Worksheet Patient Problems: Problems Problem Status Onset Fever Acute Fever Acute Heart transplant complication Acute Heart transplant recipient Acute Heart transplant recipient Acute - ICD10 Problem Qualifiers (1) Fever Qualifiers: Fever type: F Encounter type: E (2) Heart transplant recipient (3) Heart transplant recipient
[2016-09-15] MEDS ORDERED: LISINOPRIL 10 MG TAB PO SCH (09:00)
[2016-09-15] MEDS: ASPIRIN 81 MG CHEWABLE TAB PO SCH (09:06)
[2016-09-15] MEDS: MYCOPHENOLATE SODIUM 180 MG TAB.DR PO SCH (09:06)
[2016-09-15] MEDS: CHOLECALCIFEROL VIT D3 1,000 UNITS TAB PO SCH (09:06)
[2016-09-15] MEDS: CALCIUM CARBONATE 500 MG TAB PO SCH (09:06)
[2016-09-15] MEDS: CYANO/VITAMIN B12 100 MCG TAB PO SCH (09:07)
[2016-09-15] MEDS: TACROLIMUS ANHYDROUS 0.5 MG CAP PO SCH (09:07)
[2016-09-15 11:14] VITALS: BP 141/88; PULSE 90; RESP 18; O2SAT 95
--- NOTE | 2016-09-15 13:04 | PCMIDPN ---
Assessment/Plan: Assessment/Plan: * Fever: No identified etiology for fever to date. Overall feels significantly improved. Most likely viral etiology. Blood cultures remain negative. Will discontinue ceftriaxone and observe off antibiotic therapy. Follow-up West Nile virus antibody and CMV PCR as available. Will have patient follow-up with me in the office on 09/18/16 for repeat assessment. He has my card and advised to call me if he experiences recurrent fever. 09/15/16 13:02 Subjective: Feels much better. No further fever. No other specific complaints other than mild residual fatigue. Objective: Vital Signs Temp Pulse Resp BP Pulse Ox 36.6 C 90 18 141/88 H 95 09/15/16 11:13 09/15/16 11:13 09/15/16 11:13 09/15/16 11:13 09/15/16 11:13 Laboratory Results 09/15/16 06:20 09/15/16 06:20 09/14/16 09/15/16 09/16/16 05:59 05:59 05:59 Intake Total 3100 2410 Output Total 300 3350 Balance 2800 -940 Ceftriaxone # 3 Blood cultures x2 no growth Was not virus antibody/CMV PCR pending - Physical Exam General Appearance: alert, no apparent distress EENT: No scleral icterus, No thrush, No conjunctival petechiae Respiratory: lungs clear, No respiratory distress Cardiac/Chest: regular rate, rhythm Extremities: No inflammation Abdomen: non-tender, No distended Skin: No embolic lesions ICD10 Worksheet Patient Problems: Problems Problem Status Onset Fever Acute Fever Acute Heart transplant complication Acute Heart transplant recipient Acute Heart transplant recipient Acute
--- NOTE | 2016-09-15 16:19 | PDDCSUM ---
Discharge Summary Discharge Summary: DISCHARGE SUMMARY FOLLOW-UP ITEMS: CBC prior to Infectious Disease follow-up, Prograf level pending at time of discharge DATE OF ADMISSION: 09/13/2016 DATE OF DISCHARGE: 09/15/2016 DISCHARGE DIAGNOSES: 1. Systemic inflammatory response syndrome 2. Acute kidney injury on Chronic kidney disease stage 3 3. Chronic immunosuppression secondary to heart transplant 4. Chronic hypertension 5. Atelectasis CONSULTATIONS: Cardiology, Infectious Disease PROCEDURES / IMAGING: Chest CT demonstrating left basilar atelectasis, no focal airspace disease CHIEF COMPLAINT: Acute fever SUBJECTIVE: Patient is feeling well at time of discharge, feels like his strength has returned, he has been afebrile PHYSICAL EXAM ON DISCHARGE: Systolic blood pressure is 130-150, heart rate is 80 to 100, he is afebrile overnight, alert awake oriented x3, pain level 0/10 LABS ON DISCHARGE: Creatinine 1.3, potassium 3.8, blood count 4200, hemoglobin 10.3, platelets [id number], blood cultures are no growth to date, respiratory viral PCR negative, initial Prograf level 3.5 HOSPITAL COURSE BY PROBLEM: 1. Systemic inflammatory response syndrome. Present on admission, evidenced by tachycardia fever and unclear source of infection. The patient was high risk for infection given his chronic immunosuppression. In particular, he is susceptible to staph and strep organisms, and was placed on IV ceftriaxone empirically. Also received empiric IV fluids. His leukocytosis improved, his tachycardia improved, and he remained afebrile for 48 hours prior to discharge. He was seen by infectious disease, antibiotics were discontinued, and Dr. Diggs will follow up with him in the outpatient setting. He will have a CBC prior to that appointment and he has viral studies pending at time of discharge. 2. Acute kidney injury on Chronic kidney disease stage 3. Patient's baseline creatinine level is 1.3, the patient presented with a level of 1.4 in the setting of hypovolemia in the setting of infection. He was treated with empiric IV fluids and his creatinine level down trended to his baseline of 1.3. He is euvolemic at time of discharge. 3. Chronic immunosuppression secondary to heart transplant. Patient is currently on anti-rejection medications and evaluation by our mold inspector was performed to ensure that the patient was not experiencing acute rejection. It was their impression that the patient was not experiencing acute rejection and Prograf levels were checked. Patient's initial Prograf level was marginally low and he had a repeat 1 was pending at time of discharge. The patient has been instructed to follow up with his regular heart transplant team or Dr. Mota, as the patient is seeking local care and Dr. Mota is specifically specialized in this area. 4. Chronic hypertension. Patient's YONG-inhibitor was initially held secondary to acute kidney injury as well as hypovolemia. Patient's YONG inhibitor has been re-initiated habits dosage and can be uptitrated to his full dosage beginning tomorrow given his systolic blood pressures ranging between 130-150. 5. Atelectasis. Acute, in the setting of infection immobility, incentive spirometer provided, patient discharged on room air. DISCHARGE MEDICATIONS: Please see official discharge medication reconciliation sheet in chart , continue all home medications as dosed. DISCHARGE INSTRUCTIONS: Follow up with Dr. Diggs this week, have labs prior to that appointment, establish local care with Dr. Mota.
[2016-09-16 20:55] LABS: CMV DNA DETECTION AND QUANTIFI <137 IU/mL (Undetected)
[2016-09-17 15:07] LABS: INTERPRETATION See Comments; WEST NILE VIRUS IGG Negative (Negative); WEST NILE VIRUS IGM Negative (Negative)
== END 2016-09-15 13:47 | disposition home or self-care (01) | DRG 864 ==
LOC: F2W 14:59
PROVIDERS: ADMIT Internal Medicine Pulmonary Disease; ATTEND Internal Medicine
PROC: 3E0337Z Introduction of Electrolytic and Water Balance Substance into Peripheral Vein, Percutaneous Approach (ICD-10-PCS; principal; 2016-09-13)
PROC: 3E03329 Introduction of Other Anti-infective into Peripheral Vein, Percutaneous Approach (ICD-10-PCS; 2016-09-13)
DX: R50.9 Fever, unspecified (principal); R65.10 Systemic inflammatory response syndrome (SIRS) of non-infectious origin without acute organ dysfunction; N17.9 Acute kidney failure, unspecified; N18.3 Chronic kidney disease, stage 3 (moderate); I12.9 Hypertensive chronic kidney disease with stage 1 through stage 4 chronic kidney disease, or unspecified chronic kidney disease; E86.9 Volume depletion, unspecified; J98.11 Atelectasis; D64.9 Anemia, unspecified; M10.9 Gout, unspecified; E78.5 Hyperlipidemia, unspecified; Z94.1 Heart transplant status; Z86.19 Personal history of other infectious and parasitic diseases; Z86.718 Personal history of other venous thrombosis and embolism; Z92.25 Personal history of immunosuppression therapy; Z79.899 Other long term (current) drug therapy
CPT/HCPCS: 80197-90; 87497-90; J0696; J3475

== ENCOUNTER 2016-09-19 10:34 | Inpatient (IN) | payer OTHER ==
--- NOTE | 2016-09-19 11:00 | CPEKG ---
Heart Rate: 123 RR Interval: 488 P-R Interval: 156 QRSD Interval: 96 QT Interval: 304 QTC Interval: 435 P [place]: 61 QRS [place]: 112 T Wave [place]: 31 EKG Severity - ABNORMAL ECG - EKG Impression: SINUS TACHYCARDIA EKG Impression: RIGHT VENTRICULAR HYPERTROPHY EKG Impression: MINIMAL ST ELEVATION, ANTEROLATERAL LEADS Electronically Signed By: Nima Shelby 19-Sep-2016 13:28:41
[2016-09-19 11:13] LABS: % IMMATURE GRANULYOCYTES 1.2 % (0.0-1.1); ABSOLUTE IMMATURE GRANULOCYTES 0.17 10^3/uL (0.00-0.10); ADD DIFF? NO; ADD MORPH? NO; ADD SCAN? NO; ATYPICAL LYMPHOCYTE FLAG 0 (0-99); FRAGMENT RBC FLAG 0 (0-99); HEMATOCRIT 36.9 % (40.0-51.0); LEFT SHIFT FLG 20 (0-99); LIPEMIA HEMOLYSIS FLAG 80 (0-99); MEAN CELL HEMOGLOBIN 29.7 pg (27.9-34.1); MEAN CELL HEMOGLOBIN CONCENTR. 32.5 g/dL (32.4-36.7); MEAN CELL VOLUME 91.3 fL (81.5-99.8); PLATELET CLUMPS FLAG 0 (0-99); PLATELET COUNT 212 10^3/uL (150-400); RED BLOOD CELL COUNT 4.04 10^6/uL (4.40-6.38); RED CELL DISTRIBUTION WIDTH 13.2 % (11.5-15.2)
[2016-09-19 11:25] LABS: APTT 27.8 SEC (23.0-38.0); INR 1.08 (0.83-1.16); PROTIME(PATIENT) 13.9 SEC (12.0-15.0)
[2016-09-19 11:30] LABS: ANION GAP 12 mEq/L (8-16); BILIRUBIN,TOTAL 0.6 mg/dL (0.1-1.4); CALCIUM 10.1 mg/dL (8.5-10.4); CARBON DIOXIDE 23 mEq/l (22-31); CHLORIDE 101 mEq/L (97-110); CREATININE 1.8 mg/dL (0.7-1.3); GLOMERULAR FILTRATION RATE 39; GLUCOSE 111 mg/dL (70-100); POTASSIUM 4.5 mEq/L (3.5-5.2); SODIUM 136 mEq/L (134-144)
[2016-09-19] MEDS ORDERED: NS 1,000 ML IV ONE (11:44)
--- NOTE | 2016-09-19 11:44 | EDPHY ---
H & P Time Seen by Provider: 09/19/16 10:57 HPI/ROS: CHIEF COMPLAINT: Fever and diarrhea HISTORY OF PRESENT ILLNESS: Patient was admitted and discharged on the 15 of September with systemic inflammatory response syndrome but negative blood cultures. He was doing well and still last night and this morning when he developed recurrent cold sweats and fever as well as mild headache. Symptoms mild. He has a history of heart transplant and is on immunosuppressants including Prograf. He has had a little bit of a dry cough. He travel to [place] recently [place] the [place]. REVIEW OF SYSTEMS: Eye: no change in vision ENT: no sore throat Cardiac: no chest pain or syncope Pulmonary: Not short of breath or hemoptysis but a dry cough Abdomen: No vomiting or abdominal pain Musculoskeletal: no back pain Skin: no rash Neuro: Mild headache not thunderclap in onset or worst of life Constitutional: Continues to have fever and chills : no urinary symptoms A comprehensive 10 point review of systems is otherwise negative aside from elements mentioned in the history of present illness. PAST MEDICAL HISTORY: Heart transplant 9 years ago at [facility] Social history: Here with his new General Appearance: Alert and conversant, cooperative. Eyes: No scleral icterus. ENT, Mouth: Normal mucous membranes. Respiratory: Normal respiratory effort, breath sounds equal, lungs are clear to auscultation. Cardiovascular: Regular rate and rhythm. Tachycardic. Gastrointestinal: Abdomen is soft and non tender. Neurological: Alert and oriented x3. Normally conversant. Face symmetric, normal movement and sensation in all extremities. Skin: Warm and dry, no rashes. Musculoskeletal: No peripheral edema and no joint swelling. Psychiatric: Not agitated. Emergency Department course/MDM: Blood cultures drawn and chest x-ray. X-ray negative. Discussed with Infectious Disease Dr. Jc who knows the patient well at 1147. Creatinine noted at 1.8 which is slightly up from baseline. 1130: IVF infusing, plan to admit discussed and consented. Tachycardia and elevated creatinine likely due to dehydration from diarrhea. Needs stool sample for gastro panel PCR. Smoking Status: Never smoked Constitutional: Initial Vital Signs Temperature (C) 37.2 C 09/19/16 10:47 Heart Rate 136 H 09/19/16 10:47 Respiratory Rate 15 09/19/16 10:47 Blood Pressure 85/65 L 09/19/16 10:47 O2 Sat (%) 98 09/19/16 10:47 O2 Delivery Mode Room Air Allergies/Adverse Reactions: spironolactone Allergy (Severe, Verified 09/13/16 14:04) Other-Enter Comments Home Medications: Medication Instructions Recorded Allopurinol [Allopurinol 100 MG 200 mg PO DAILY #0 09/13/16 (*)] Aspirin [Aspirin 81mg (*)] 81 mg PO DAILY 09/13/16 Azelastine [Astelin] 1 sprays EACHNARE BID PRN 09/13/16 Calcium [HI-BRENNAN] 1,000 mg PO BID 09/13/16 Cholecalciferol Vit D3 [Vitamin D3 2,000 units PO DAILY 09/13/16 (*)] Lisinopril [Zestril 20 mg (*)] 20 mg PO DAILY18 09/13/16 Mycophenolate Sodium [Mycophenolic 180 mg PO BID 09/13/16 Acid] Pravastatin Sodium 40 mg PO DAILY18 09/13/16 Tacrolimus Anhydrous [Prograf 0.5 0.5 mg PO BID 09/13/16 MG (*)] Tadalafil [Cialis] 5 mg PO PRN PRN 09/13/16 traZODone [traZODONE 100MG (*)] 100 mg PO HS 09/13/16 Cyanocobalamin [Vitamin B12 (*)] 500 mcg PO DAILY 09/19/16 oxyCODONE IR [Oxycodone Ir (*)] 5 mg PO DAILY PRN 09/19/16 Medical Decision Making - Diagnostics EKG Interpretation: 12-lead EKG interpreted by me; official reading is in trace master. My interpretation is sinus tachycardia with RVH, no ischemic changes. Imaging Results: Imaging Impressions Chest X-Ray 09/19/16 11:09 Impression: No acute findings in the chest. Differential Diagnosis: Differential for fever considered including but not limited to endocarditis, rejection, pneumonia, sepsis, UTI. Consult/Admit Bed Type: [facility] l[facility] - Data Points Laboratory Results: Laboratory Results 09/19/16 10:55 09/19/16 10:55 09/19/16 09/19/16 09/19/16 10:55 10:55 10:55 WBC 14.15 10^3/uL H 10^3/uL (3.80-9.50) RBC 4.04 10^6/uL L 10^6/uL (4.40-6.38) Hgb 12.0 g/dL L g/dL (13.7-17.5) Hct 36.9 % L % (40.0-51.0) MCV 91.3 fL fL (81.5-99.8) MCH 29.7 pg pg (27.9-34.1) MCHC 32.5 g/dL g/dL (32.4-36.7) RDW 13.2 % % (11.5-15.2) Plt Count 212 10^3/uL 10^3/uL (150-400) MPV 10.0 fL fL (8.7-11.7) Neut % (Auto) 92.1 % H % (39.3-74.2) Lymph % (Auto) 2.5 % L % (15.0-45.0) T[place] % (Auto) 3.8 % L % (4.5-13.0) Eos % (Auto) 0.2 % L % (0.6-7.6) Baso % (Auto) 0.2 % L % (0.3-1.7) Nucleat RBC Rel Count 0.0 % % (0.0-0.2) Absolute Neuts (auto) 13.02 10^3/uL H 10^3/uL (1.70-6.50) Absolute Lymphs (auto) 0.36 10^3/uL L 10^3/uL (1.00-3.00) Absolute Monos (auto) 0.54 10^3/uL 10^3/uL (0.30-0.80) Absolute Eos (auto) 0.03 10^3/uL 10^3/uL (0.03-0.40) Absolute Basos (auto) 0.03 10^3/uL 10^3/uL (0.02-0.10) Absolute Nucleated RBC 0.00 10^3/uL 10^3/uL (0-0.01) Immature Gran % 1.2 % H % (0.0-1.1) Immature Gran # 0.17 10^3/uL H 10^3/uL (0.00-0.10) PT 13.9 SEC SEC (12.0-15.0) INR 1.08 (0.83-1.16) APTT 27.8 SEC SEC (23.0-38.0) VBG Lactic Acid Sodium 136 mEq/L mEq/L (134-144) Potassium 4.5 mEq/L mEq/L (3.5-5.2) Chloride 101 mEq/L mEq/L (97-110) Carbon Dioxide 23 mEq/l mEq/l (22-31) Anion Gap 12 mEq/L mEq/L (8-16) BUN 28 mg/dL H mg/dL (7-23) Creatinine 1.8 mg/dL H mg/dL (0.7-1.3) Estimated GFR 39 Glucose 111 mg/dL H mg/dL (70-100) Calcium 10.1 mg/dL mg/dL (8.5-10.4) Total Bilirubin 0.6 mg/dL mg/dL (0.1-1.4) 09/19/16 10:55 WBC RBC Hgb Hct MCV MCH MCHC RDW Plt Count MPV Neut % (Auto) Lymph % (Auto) Titus % (Auto) Eos % (Auto) Baso % (Auto) Nucleat RBC Rel Count Absolute Neuts (auto) Absolute Lymphs (auto) Absolute Monos (auto) Absolute Eos (auto) Absolute Basos (auto) Absolute Nucleated RBC Immature Gran % Immature Gran # PT INR APTT VBG Lactic Acid 1.6 mmol/L mmol/L (0.7-2.1) Sodium Potassium Chloride Carbon Dioxide Anion Gap BUN Creatinine Estimated GFR Glucose Calcium Total Bilirubin Medications Given: Discontinued Medications Sodium Chloride (Ns) 1,000 mls @ 0 mls/hr IV EDNOW ONE; Wide Open PRN Reason: Protocol Stop: 09/19/16 11:45 Last Admin: 09/19/16 11:58 Dose: 1,000 mls Departure - Departure Disposition: [facility] In[facility] Acute Clinical Impression: Fever Qualifiers: Fever type: unspecified Qualified Code(s): R50.9 - Fever, unspecified Condition: Good
[2016-09-19] MEDS ORDERED: NS 500 ML IV ONE (12:45)
[2016-09-19] MEDS ORDERED: ONDANSETRON 4 MG/2 ML VIAL IVP PRN (12:45)
[2016-09-19] MEDS ORDERED: ACETAMINOPHEN 325 MG TAB PO PRN (12:45)
[2016-09-19] MEDS ORDERED: ONDANSETRON DISINTEGRATING 4 MG TAB PO PRN (12:45)
[2016-09-19] MEDS ORDERED: PROMETHAZINE HCL 25 MG/ML INJ IVP PRN (12:45)
[2016-09-19] MEDS ORDERED: oxyCODONE IR 5 MG TAB PO PRN (12:45)
[2016-09-19] MEDS ORDERED: AZELASTINE NASAL MDI EACHNARE PRN (12:48)
--- NOTE | 2016-09-19 16:36 | PCMIDPN ---
Assessment/Plan: # fever, diarrhea , leukocytosis: concern for bacterial gastroenteritis versus C diff with recent antibiotic use during hospitalization. -- agree with GI panel PCR -- monitor blood culture -- as patient is hemodynamically stable agree withholding antibiotic therapy for now # mid epigastric pain, weight loss: If persistent fever may have to consider endoscopy # moises oral HSV: Patient is applying topical therapy, reports it is slowly improved # mild renal insufficiency, creatinine 1.7 is above his baseline, hydration per primary team # cardiac transplant on tacrolimus and mycophenolate, stable doses Subjective: 61-year-old male with a cardiac transplant 9 year ago, on mycophenolate and tacrolimus who was recently admitted to the hospital from 09/13/2016 through for fever. Patient received IV antibiotics for a couple days and ID was consulted who subsequently discontinue as symptoms were felt to be related to viral syndrome. CMV PCR in the peripheral blood was low and West Nile was negative. 09/13/2016 viral nasal PCR was negative and blood cultures are negative. Patient called me this a.m. with ongoing fever to 101 (which was less than prior fever to 103 prior to recent hospitalization ), tachycardia, malaise and several bouts of liquid nonbloody diarrhea. No associated abdominal pain. No recent change in his medicines. no sick contacts. patient describes chronic mid epigastric pain, nausea with eating and significant weight loss over the last year. Objective: Vital Signs Temp Pulse Resp BP Pulse Ox 37.2 C 95 18 112/67 96 09/19/16 13:37 09/19/16 13:37 09/19/16 13:37 09/19/16 13:37 09/19/16 13:37 09/18/16 09/19/16 09/20/16 05:59 05:59 05:59 Intake Total 1000 Balance 1000 Laboratory Tests 09/19/16 09/19/16 09/19/16 10:55 10:55 10:55 WBC 14.15 H Hgb 12.0 L Hct 36.9 L Plt Count 212 Neut % (Auto) 92.1 H VBG Lactic Acid 1.6 Creatinine 1.8 H - Physical Exam General Appearance: alert, no apparent distress EENT: other ( moises oral ulcerations were noted. No intraoral lesions . teeth okay) Neck: supple, No lymphadenopathy (L), No lymphadenopathy (R) Cardiac/Chest: other ( midline sternotomy scar well healed) Extremities: No pedal edema, No inflammation, No swelling Abdomen: normal bowel sounds, non-tender, soft, No guarding, No hepatomegaly, No splenomegaly Skin: No diaphoresis, No rash Neuro/Psych: alert, normal mood/affect, oriented x 3 - Time Spent With Patient Time Spent with Patient: greater than 35 minutes Time Spent with Patient: Greater than 35 minutes spent on this patients care, greater than 50% of time spent counseling, educating, and coordinating care regarding the above mentioned plan. ICD10 Worksheet Patient Problems: Problems Problem Status Onset Fever Acute Fever Acute Heart transplant complication Acute Heart transplant recipient Acute Heart transplant recipient Acute
[2016-09-19 18:22] LABS: TROPONIN I < 0.012 ng/mL (0-0.034)
[2016-09-19] MEDS: PRAVASTATIN SODIUM 40 MG TAB PO SCH (18:32)
[2016-09-19] MEDS ORDERED: NS 1,000 ML IV SCH (19:00)
[2016-09-19 19:11] LABS: COLOR YELLOW; LEUKOCYTE ESTERASE,URINE NEGATIVE (NEGATIVE); NITRITE,URINE NEGATIVE (NEGATIVE)
[2016-09-19 19:13] LABS: MUCUS TRACE /lpf (NONE-1+)
--- NOTE | 2016-09-19 19:45 | GHP ---
[f rep st] HISTORY AND PHYSICAL DATE OF ADMISSION: 09/19/2016 CHIEF COMPLAINT: Fever. HISTORY: This is a 61-year-old man who has a past medical history of nonischemic cardiomyopathy wit h prior ejection fraction of 4% who is approximately 9 years post heart transplantation and presents with complaints of cold sweats, fever to 102, along with elevated heart rate. Patient was recently hospitalized for the same issues on 09/13/2016, discharged on 09/15/2016. At t hat time, workup was unrevealing for any source of infection. He notes that when he left the hospit al he felt well but then last night, again developed fever and sweats. He has also had diarrhea and dry cough since yesterday. He also notes fever blisters that are present on his lips which he stat es he gets periodically when he is getting sick with something. He denies any urinary complaints. He denies any rashes. He has not had any chest pain. He does not have any increasing pain, so he d oes not have any lower extremity edema. PAST MEDICAL HISTORY: 1. Includes nonischemic cardiomyopathy, now status post cardiac transplant 9 years ago on chronic i mmune suppression. 2. Chronic kidney disease. 3. Hypertension. 4. Hyperlipidemia. 5. Postop DVT. PAST SURGICAL HISTORY: 1. Includes heart transplantation in 2007 which was complicated by severe rejection. 2. Recent deviated septum surgery. 3. Fasciotomy. 4. Appendectomy. FAMILY HISTORY: Unremarkable per his report. SOCIAL HISTORY: Patient is a nonsmoker. He drinks alcohol rarely. Denies any illicit drug use. REVIEW OF SYSTEMS: 10-point review of systems obtained and negative, except as per HPI. HOME MEDICATIONS: Include: 1. Trazodone. 2. Oxycodone. 3. Dialysis. 4. Tacrolimus. 5. Pravastatin. 6. Mycophenolic acid. 7. Lisinopril. 8. Cyanocobalamin. 9. Cholecalciferol. 10. Astelin. 11. Aspirin. 12. Allopurinol. ALLERGIES: Includes spironolactone. PHYSICAL EXAM: VITAL SIGNS: BP 113/69. Heart rate 92, respiratory rate 18, O2 sats 94% on room air . Temperature is 36.9. GENERAL: This is a chronically ill-appearing, thin male. He is awake and alert. He is in no acute distress. EYES: Anicteric. HEENT: There are some crusted lesions over his upper lip and below his nose, otherwise, oropharynx i s clear. CARDIOVASCULAR: Regular rate and rhythm, no MRG. PULMONARY: CTA bilaterally. Normal wo rk of breathing. ABDOMEN: Soft, nontender. Positive bowel sounds. EXTREMITIES: No clubbing, cya nosis, or edema. SKIN: Warm, dry, well perfused. NEURO/PSYCH: Oriented appropriate, pleasant. CLINICAL DATA: Reviewed, significant for a white blood cell count of 14.15, hemoglobin of 12, hemat ocrit 36.9, platelets of 212. Coag studies are within normal limits. Lactic acid is 1.6. Creatinine 1.8 up from 1.4. Troponin l ess than 0.012. Chest x-ray, personally reviewed and interpreted, shows no acute findings. EKG personally reviewed and interpreted, showing sinus tachycardia with right ventricular hypertroph y and sloping ST elevations in anterior lateral leads. When compared to prior is essentially unchan ged. ASSESSMENT/PLAN: This is a 61-year-old man past medical history of heart transplantation on chronic immune suppression presenting with recurrent fever and diarrhea. 1. SIRS/diarrhea: Patient with elevated white blood cell count as well as fever again after recent hospitalization for the same. The only change really is that he now has diarrhea as well in the se tting of recent antibiotic use. We will check a GI panel, PCR. Blood cultures have been sent and a re pending. Infectious Disease has been consulted. Given hemodynamic instability will withhold ant ibiotics for the time being. 2. History of heart transplantation and nonischemic cardiomyopathy. Patient does not appear acutel y decompensated. We will continue his usual regimen of immune suppression. Cardiology has been con sulted. 3. Acute kidney injury on chronic kidney disease. Patient's baseline creatinine closer to 1.4. Cu rrently elevated to 1.8 with also elevated BUN consistent with prerenal etiology. He was also hypot ensive initially on arrival. We will continue IV fluids gently overnight as patient does appear dry on exam. 4. Perioral herpes simplex virus. Reportedly this is improving. Will continue to monitor. 5. Hypertension. Will hold lisinopril given at this time patient is mildly hypotensive and with an acute kidney injury. 6. Hyperlipidemia. Will continue pravastatin. DISPOSITION: Inpatient status. Patient is high risk and will likely require greater than 48 hours stay for evaluation and management of above. Patient is new to my care. Old records reviewed, summarized as per HPI and past medical history. C are plan reviewed with ER physician, including plans for admission and workup of fever. /[id number]/MODL
[2016-09-19 20:07] LABS: PROCALCITONIN 2.08 ng/mL (0.02-0.10)
[2016-09-19] MEDS: MYCOPHENOLATE SODIUM 180 MG TAB.DR PO SCH (20:36)
[2016-09-19] MEDS: traZODone 100 MG TAB PO SCH (20:36)
[2016-09-19] MEDS: TACROLIMUS ANHYDROUS 0.5 MG CAP PO SCH (20:36)
[2016-09-19] MEDS: NON-FORMULARY NEW DRUG (Calcium [Hi-Cal] 1,000 MG) PO SCH (22:18)
[2016-09-20 04:11] LABS: % IMMATURE GRANULYOCYTES 0.4 % (0.0-1.1); ABSOLUTE IMMATURE GRANULOCYTES 0.02 10^3/uL (0.00-0.10); ADD DIFF? NO; ADD MORPH? NO; ADD SCAN? NO; ATYPICAL LYMPHOCYTE FLAG 20 (0-99); FRAGMENT RBC FLAG 0 (0-99); HEMATOCRIT 27.9 % (40.0-51.0); HEMOGLOBIN 9.2 g/dL (13.7-17.5); LEFT SHIFT FLG 0 (0-99); LIPEMIA HEMOLYSIS FLAG 80 (0-99); MEAN CELL VOLUME 90.9 fL (81.5-99.8); MEAN PLATELET VOLUME 10.5 fL (8.7-11.7); PLATELET CLUMPS FLAG 10 (0-99); PLATELET COUNT 171 10^3/uL (150-400); RED BLOOD CELL COUNT 3.07 10^6/uL (4.40-6.38); RED CELL DISTRIBUTION WIDTH 13.2 % (11.5-15.2)
[2016-09-20 04:37] LABS: ANION GAP 10 mEq/L (8-16); CALCIUM 8.7 mg/dL (8.5-10.4); CARBON DIOXIDE 20 mEq/l (22-31); CHLORIDE 106 mEq/L (97-110); CREATININE 1.6 mg/dL (0.7-1.3); GLOMERULAR FILTRATION RATE 44; GLUCOSE 81 mg/dL (70-100); POTASSIUM 4.7 mEq/L (3.5-5.2); SODIUM 136 mEq/L (134-144)
[2016-09-20] MEDS: ALLOPURINOL 100 MG TAB PO SCH (07:48)
[2016-09-20] MEDS: NON-FORMULARY NEW DRUG (Calcium [Hi-Cal] 1,000 MG) PO SCH (07:48)
[2016-09-20] MEDS: CYANO/VITAMIN B12 1000 MCG TAB PO SCH (07:48)
[2016-09-20] MEDS: CHOLECALCIFEROL VIT D3 1,000 UNITS TAB PO SCH (07:48)
[2016-09-20] MEDS: ASPIRIN 81 MG CHEWABLE TAB PO SCH (07:48)
[2016-09-20] MEDS: TACROLIMUS ANHYDROUS 0.5 MG CAP PO SCH ×2 (07:50→20:49)
[2016-09-20] MEDS: MYCOPHENOLATE SODIUM 180 MG TAB.DR PO SCH ×2 (07:50→20:49)
[2016-09-20] MEDS: ENOXAPARIN 30 MG/0.3 ML SYR SC SCH (07:50)
--- NOTE | 2016-09-20 14:14 | HOSPPROG ---
Hospitalist Progress Note Assessment/Plan: 61-year-old with a history of cardiac transplant 9 years ago currently on immunosuppression with mycophenolate and tacrolimus. He was recently admitted from a September 13 through September 15 for fever it was felt that the fevers were related to a viral syndrome and antibiotics were discontinued after 2 days. He was discharged home and did well up until the morning of admission we started having fevers up to 101. This is associated with tachycardia malaise and bouts of nonbloody diarrhea. Additionally he had a recent sinus surgery in April and does admit to some congestion in his sinus. He has had no bowel movement since admission until this morning. # fever, diarrhea , leukocytosis: concern for bacterial gastroenteritis versus C diff with recent antibiotic use during hospitalization. * PCR panel done, currently pending * Monitor blood cultures * Will check facial CT given his recent sinus surgery and congestion. # midepigastric pain, not complaining today but will continue to monitor consider endoscopy # acute on chronic renal insufficiency, creatinine at 1.6 today continue to monitor # ischemic cardiomyopathy thought secondary to viral status post cardiac transplant 9 years ago followed at the transplant clinic. I did discuss the case with who feels fevers are not related to rejection. She recommends ongoing care here at [facility] unless heart issues arise. # history of hypertension # dyslipidemia # history of moises oral HSV Subjective: Patient new to me chart reviewed. Discussed with outpatient physician. Patient feeling well overall no specific localizing complaints although he does have some sinus congestion which has been intermittent since his surgery in April Objective: Vital Signs Temp Pulse Resp BP Pulse Ox 36.6 C 89 18 129/73 H 95 09/20/16 11:59 09/20/16 11:59 09/20/16 11:59 09/20/16 11:59 09/20/16 11:59 Laboratory Results 09/20/16 03:20 09/20/16 04:00 09/19/16 09/20/16 09/21/16 05:59 05:59 05:59 Intake Total 3100 Output Total 1300 Balance 1800 PT 13.9 SEC (12.0-15.0) 09/19/16 10:55 INR 1.08 (0.83-1.16) 09/19/16 10:55 - Physical Exam Constitutional: no apparent distress, chronically ill appearing Eyes: PERRL, EOMI Ears, Nose, Mouth, Throat: moist mucous membranes Cardiovascular: regular rate and rhythym Respiratory: no respiratory distress, no rales or rhonchi Gastrointestinal: normoactive bowel sounds, soft, non-tender abdomen Genitourinary: no bladder fullness Skin: warm Musculoskeletal: no joint effusions Neurologic: AAOx3 Psychiatric: interacting appropriately ICD10 Worksheet Patient Problems: Problems Problem Status Onset Fever Acute Fever Acute Heart transplant complication Acute Heart transplant recipient Acute Heart transplant recipient Acute
[2016-09-20] MEDS: PRAVASTATIN SODIUM 40 MG TAB PO SCH (17:38)
--- NOTE | 2016-09-20 18:10 | PCMIDPN ---
Assessment/Plan: Assessment/Plan: 1. Norovirus gastroenteritis: -Contact, droplet precautions - continue supportive care -wbc improved, creatinine improving. blood cx pending -care coordinated with hospitalist team and RN. Subjective: AFebrile. Feels better today. Has had two stools today so far. Last stool was semi-formed. denies abd pain, n, vomiting, appetite intact,. denies sob. Objective: Vital Signs Temp Pulse Resp BP Pulse Ox 36.8 C 90 18 136/84 H 95 09/20/16 15:33 09/20/16 15:33 09/20/16 15:33 09/20/16 15:33 09/20/16 15:33 Laboratory Results 09/20/16 03:20 09/20/16 04:00 09/19/16 09/20/16 09/21/16 05:59 05:59 05:59 Intake Total 3100 2387 Output Total 1300 650 Balance 1800 1737 - Physical Exam General Appearance: alert, no apparent distress EENT: No thrush Respiratory: lungs clear Cardiac/Chest: regular rate, rhythm Extremities: No swelling Abdomen: normal bowel sounds, non-tender, soft, No distended Skin: No erythema ICD10 Worksheet Patient Problems: Problems Problem Status Onset Fever Acute Fever Acute Heart transplant complication Acute Heart transplant recipient Acute Heart transplant recipient Acute
[2016-09-20 20:06] VITALS: RESP 16
[2016-09-20] MEDS: traZODone 100 MG TAB PO SCH (20:49)
[2016-09-20] MEDS: CALCIUM CARBONATE 500 MG TAB PO SCH (20:49)
[2016-09-21] MEDS: CHOLECALCIFEROL VIT D3 1,000 UNITS TAB PO SCH (08:21)
[2016-09-21] MEDS: ASPIRIN 81 MG CHEWABLE TAB PO SCH (08:22)
[2016-09-21] MEDS: CALCIUM CARBONATE 500 MG TAB PO SCH (08:22)
[2016-09-21] MEDS: ALLOPURINOL 100 MG TAB PO SCH (08:22)
[2016-09-21] MEDS: MYCOPHENOLATE SODIUM 180 MG TAB.DR PO SCH (08:22)
[2016-09-21] MEDS: TACROLIMUS ANHYDROUS 0.5 MG CAP PO SCH (08:23)
[2016-09-21] MEDS: CYANO/VITAMIN B12 1000 MCG TAB PO SCH (08:23)
[2016-09-21] MEDS: ENOXAPARIN 30 MG/0.3 ML SYR SC SCH (08:24)
[2016-09-21 11:08] VITALS: BP 123/77; PULSE 92; TEMP 98; O2SAT 94
--- NOTE | 2016-09-21 12:15 | GDS ---
[f rep st] DISCHARGE SUMMARY DIAGNOSES: 1. Fevers and diarrhea secondary to norovirus. 2. History of chronic sinusitis, status post sinus surgery. Current facial CT negative for infecti on. 3. Nonischemic cardiomyopathy, status post transplant 9 years ago. Followed at the transplant clin ic. 4. History of hypertension. 5. Dyslipidemia. 6. Chronic renal insufficiency. PROCEDURES DONE: Facial CT showing some chronic sinus changes but nothing acute. CONSULTATIONS: Infectious Disease. HOSPITAL COURSE: The patient is a 61-year old, who presents with diarrhea, fevers. He is immunocom promised from a heart transplant. GI panel was positive for norovirus, he was admitted to the [facility] while awaiting workup. Blood cultures are negative. He did defervesce and has not had a fever here in the hospital. It is likely that his fever was secondary to virus and he should slowly impro ve. He had no complications while here in the hospital. CONDITION ON DISCHARGE: Good. PHYSICAL EXAM: VITAL SIGNS: He is afebrile. Heart rate is 86, blood pressure 140/90. He is 92% o n room air. GENERAL: He is alert and oriented. ABDOMEN: Benign. DISCHARGE MEDICATIONS: Please see discharge medication form. FOLLOWUP: He will follow up with the heart transplant clinic and follow up with Infectious Disease as needed. Total time spent with patient on day of discharge and coordination of care is 35 minutes. /[id number]/MODL
== END 2016-09-21 11:31 | disposition home or self-care (01) | DRG 392 ==
LOC: F2W 13:15
PROVIDERS: ADMIT Internal Medicine; ATTEND Internal Medicine
DX: A08.39 Other viral enteritis (principal); Z94.1 Heart transplant status; E78.5 Hyperlipidemia, unspecified; I12.9 Hypertensive chronic kidney disease with stage 1 through stage 4 chronic kidney disease, or unspecified chronic kidney disease; N18.3 Chronic kidney disease, stage 3 (moderate); B00.1 Herpesviral vesicular dermatitis
CPT/HCPCS: J1650